=== PATIENT | female | born 1965 | race Caucasian/White ===

== ENCOUNTER 2016-07-09 11:32 | Emergency (ER) | payer BC, OTHER ==
[2016-07-09 12:14] VITALS: BP 121/76
--- NOTE | 2016-07-09 13:09 | ED ---
Throat Pain/Nasal Congestion - HPI Summary HPI Summary: Pt presents through amb triage. Pt states 10 days ago had nasal congestion with clear discharge, pnd, sore throat and laryngitis. Pt states starting Sunday, "things got worse" Discharge thick and green, fatigue, and cough. Pt reports facial aching over max sinus. ear fullness. Pt states feels cough related to PND. No wheeze. No abd pain. + nausea, no vomiting. decreased appetite. Pt has been taking sudafed and mucinex DM with improvement. No rash. PT has DM - has not been taking insulin second to decreased appetite, but is taking oral meds meds reviewed with pt at this visit - History of Current Complaint Chief Complaint: UCRespiratory Time Seen by Provider: 07/09/16 12:56 Hx Obtained From: Patient Onset/Duration: Gradual Onset Severity: Mild Cough: Nonproductive - Allergies/Home Medications Allergies/Adverse Reactions: Allergies Allergy/AdvReac Type Severity Reaction Status Date / Time Cefazolin [From Ancef] Allergy SEVERE Verified 04/09/14 06:45 VOMITING Home Medications: Home Medications Empagliflozin-Linagliptin [Glyxambi 10-5 mg] 1 tab PO DAILY 07/09/16 [History Confirmed 07/09/16] Insulin GLARGINE(*) [Lantus(*)] 50 units SUBCUT BEDTIME 07/09/16 [History Confirmed 07/09/16] Simvastatin TAB(NF) [Zocor(NF)] 40 mg PO 1700 07/09/16 [History Confirmed ] metFORMIN* [Glucophage 500 MG TAB *] 500 mg PO BID 07/09/16 [History Confirmed 07/09/16] PMH/Surg Hx/FS Hx/Imm Hx Previously Healthy: Yes Endocrine/Hematology History: Reports: Hx Diabetes Cardiovascular History: Reports: Other Cardiovascular Problems/Disorders - CHOLESTEROL CONTROL WITH SIMVASTATIN Sensory History: Denies: Hx Contacts or Glasses, Hx Hearing Aid Opthamlomology History: Denies: Hx Contacts or Glasses - Cancer History Hx Chemotherapy: No Hx Radiation Therapy: No - Surgical History Surgery Procedure, Year, and Place: Partial Hysterectomy (Has Cervix and Ovaries ), 2014, [facility] – [place]; Bilateral Breast Reduction, 2000, [facility] Hx Anesthesia Reactions: Yes - NAUSEA DEMEROL AND ANCEF MAKES ME NAUSEOUS Infectious Disease History: No Infectious Disease History: Denies: Traveled Outside the [place] in Last 30 Days - Family History Known Family History: Positive: Cardiac Disease, Hypertension - Social History Occupation: Employed Full-time Lives: With Family Alcohol Use: None Substance Use Type: Reports: None Smoking Status (MU): Never Smoked Tobacco Review of Systems Positive: Fever, Fatigue Eyes: Negative Positive: Sore Throat, Nasal Discharge Cardiovascular: Negative Negative: Chest Pain Positive: Cough. Negative: Shortness Of Breath Positive: Nausea Genitourinary: Negative Musculoskeletal: Negative Skin: Negative Neurological: Negative Psychological: Normal All Other Systems Reviewed And Are Negative: Yes Physical Exam Triage Information Reviewed: Yes Vital Signs On Initial Exam: Initial Vitals Temp Pulse Resp BP Pulse Ox 99.3 F 108 18 121/76 99 07/09/16 12:05 07/09/16 12:05 07/09/16 12:05 07/09/16 12:05 07/09/16 12:05 Vital Signs Reviewed: Yes Appearance: Positive: Well-Appearing, No Pain Distress Skin: Positive: Warm, Skin Color Reflects Adequate Perfusion, Dry Head/Face: Positive: Normal Head/Face Inspection Eyes: Positive: Normal, EOMI, GUILLERMO ENT: Positive: Hearing grossly normal, Nasal congestion - turbinates inflammed, thick secretions + PND no exudate + TTP max sinus no pain frontal, TMs normal Neck: Positive: Supple, Nontender, No Lymphadenopathy Respiratory/Lung Sounds: Positive: Clear to Auscultation, Breath Sounds Present. Negative: Wheezes Cardiovascular: Positive: Normal, RRR. Negative: Murmur Abdomen Description: Positive: Nontender, No Organomegaly, Soft Bowel Sounds: Positive: Present Musculoskeletal: Positive: Normal, Strength/ROM Intact Neurological: Positive: Normal, Normal Gait Psychiatric: Positive: Normal AVPU Assessment: Alert - Chad Coma Scale Best Eye Response: 4 - Spontaneous Best Motor Response: 6 - Obeys Commands Best Verbal Response: 5 - Oriented Diagnostics - Vital Signs Vital Signs Temp Pulse Resp BP Pulse Ox 07/09/16 12:05 99.3 F 108 18 121/76 99 - Laboratory Lab Statement: Any lab studies that have been ordered have been reviewed, and results considered in the medical decision making process. EENT Course/Dx - Course Assessment/Plan: Pt with progressive sinus pressure, green secretions, fatigue, nausea. Pt with clinical sinusitis. Will give Augmentin, flonase. d/w pt increased BG on flonase. oral secretion hygeine. PCP f/u. return precautions - Diagnoses Provider Diagnoses: Sinusitis Discharge - Discharge Plan Condition: Stable Disposition: HOME Prescriptions: Amoxicillin/Clavulanate TAB* [Augmentin TAB 875*] 875 mg PO BID #20 tab Fluticasone NASAL SPRAY 50MCG* [Flonase NASAL SPRAY 50MCG*] 2 spray BOTH NARES DAILY #1 btl Patient Education Materials: Sinusitis (ED) Referrals: Jose Guadalupe Dia NP [Primary Care Provider] - Additional Instructions: - Stay well hydrated. Drink plenty of non-alcoholic, non-caffinated beverages. - Take antibiotics as prescribed until gone - After you have been on antibiotics for 2 days - change your toothbrush and your pillowcase. These infections are spread by secretions - do NOT share eating or drinking utensils - clean items you share with other people such as cell phones, computer mouse, TV remote, computer tablets, etc - Use nasal spray as instructed - this may cause an increase in your blood sugars. monitor and adjust your insulin - Alternate ibuprofen (Advil, Motrin) 600mg and Tylenol every 3 hours for pain or fever. Take with food. Do NOT take for more than 4-5 days. - Contact your doctor to schedule a follow-up appointment. Contact your doctor or return with questions or concerns
== END 2016-07-09 13:27 | disposition home or self-care (01) ==
LOC: UCCORT 11:32
DX: J32.9 Chronic sinusitis, unspecified (principal); Z88.1 Allergy status to other antibiotic agents; E11.9 Type 2 diabetes mellitus without complications; Z79.4 Long term (current) use of insulin; Z79.84 Long term (current) use of oral hypoglycemic drugs; Z90.711 Acquired absence of uterus with remaining cervical stump
CPT/HCPCS: 99212; G0463

== ENCOUNTER 2016-11-16 13:28 | Emergency (ER) | payer BC, OTHER ==
[2016-11-16 13:40] VITALS: BP 120/85
--- NOTE | 2016-11-16 13:45 | UC ---
Skin Complaint HPI - HPI Summary HPI Summary: 50 year old female presents with skin complaint. left groin area, possible bug bite, concerned with possible tick/lyme. not sure if had tick exposure. had [ End ] - History of Current Complaint Chief Complaint: UCSkin Time Seen by Provider: 11/16/16 13:42 Stated Complaint: INSECT BITE (TICK ?) Hx Obtained From: Patient ?: No Onset/Duration: Gradual Onset Onset Severity: Mild Character: Pruritus Alleviating: Nothing Related History: Insect Bite/Sting, Possible Reaction to: Insect - Allergy/Home Medications Allergies/Adverse Reactions: Allergies Allergy/AdvReac Type Severity Reaction Status Date / Time Cefazolin [From Anc] Allergy SEVERE Verified 11/16/16 13:40 VOMITING Review of Systems Skin: Other - redness / discomfort in the anterior hip All Other Systems Reviewed And Are Negative: Yes PMH/Surg Hx/FS Hx/Imm Hx - Surgical History Surgical History: Yes Surgery Procedure, Year, and Place: Partial Hysterectomy (Has Cervix and Ovaries ), 2014, [facility] [place]; Bilateral Breast Reduction, 2000, [place] - Family History Known Family History: Positive: Cardiac Disease, Hypertension - Social History Alcohol Use: None Substance Use Type: None Smoking Status (MU): Never Smoked Tobacco - Immunization History Most Recent Influenza Vaccination: November 2015 Physical Exam Triage Information Reviewed: Yes Appearance: Well-Appearing, No Pain Distress, Well-Nourished Vital Signs: Initial Vital Signs Temp 97.6 F 11/16/16 13:37 Pulse 69 11/16/16 13:37 Resp 14 11/16/16 13:37 BP 120/85 11/16/16 13:37 Pulse Ox 98 11/16/16 13:37 Eye Exam: Normal ENT Exam: Normal Dental Exam: Normal Neck exam: Normal Neck: Positive: 1 Respiratory Exam: Normal Cardiovascular Exam: Normal Abdominal Exam: Normal Musculoskeletal Exam: Normal Neurological Exam: Normal Psychological Exam: Normal Skin Exam: Normal Skin: Positive: Other - left anterior hip near the ASIS with area of redness / mild erythema about size of quarter with mildly thickened soft tissue and small amount of ecchymosis in the center and broken skin. no lymph node enarlgement. Course/Dx - Course Course Of Treatment: Treat to ensure no abscess / cellulitis develops with her risk factors of DM -2 and she has been recent;y picking at the area / poked it with a needle 2 days ago to get drainage out. She is agreeable and aware of SE of meds. - Differential Diagnoses - Skin Complaint Differential Diagnoses: Cellulitis, Contact Dermatitis, Local Allergic Reaction , Lymphadenitis - Diagnoses Provider Diagnoses: folliculitis Discharge - Discharge Plan Condition: Good Disposition: HOME Prescriptions: Doxycycline (Monohydrate) [Doxycycline Monohydrate] 100 mg PO BID #20 cap Patient Education Materials: Folliculitis (ED) Referrals: Jose Guadalupe Dia NP [Primary Care Provider] - 4 Days Additional Instructions: As we discussed with the area that is affected and potential for infection we will treat at this time. If your symptoms worsen please seek medical attention.
== END 2016-11-16 14:14 | disposition home or self-care (01) ==
LOC: UCCORT 13:28
DX: L73.9 Follicular disorder, unspecified (principal); Z88.1 Allergy status to other antibiotic agents; Z90.711 Acquired absence of uterus with remaining cervical stump
CPT/HCPCS: 99212; G0463

== ENCOUNTER 2017-06-01 03:44 | Observation (INO) | payer BC ==
[2017-06-01] MEDS ORDERED: NS 0.9% 1000 ML* 1,000 ML IV ONE (04:48)
[2017-06-01] MEDS ORDERED: Pantoprazole IV* 40 MG IV ONE (04:48)
[2017-06-01] MEDS ORDERED: Ondansetron INJ* 2 MG/ML VIAL IV ONE (04:52)
[2017-06-01 05:37] LABS: ABS Basophils 0 10^3/ul (0-0.2); ABS Eosinophils 1.6 10^3/ul (0-0.6); ABS Monocytes 0.6 10^3/ul (0-0.8); ABS Neutrophils 7.2 10^3/ul (1.5-7.7); ABS Nucleated RBC 0 10^3/ul; Eosinophil % 13.9 % (0-6); Hematocrit 46 % (35-47); Hemoglobin 15.2 g/dl (12.0-16.0); Lymphocyte % 17.4 % (25-47); Mean Corpuscular HGB Conc 33 g/dl (31-36); Mean Corpuscular Hemoglobin 28 pg (27-31); Mean Corpuscular Volume 85 fL (80-97); Mean Platelet Volume 9 um3 (7.4-10.4); Nucleated Red Blood Cells % 0; Platelet Count 223 10^3/ul (150-450); Red Blood Count 5.38 10^6/ul (4.0-5.4); Red Cell Distribution Width 15 % (10.5-15); White Blood Count 11.5 10^3/ul (3.5-10.8)
[2017-06-01 05:49] LABS: EGFR Non-African American 95.2 (>60); INR 0.82 (0.77-1.02)
[2017-06-01] MEDS ORDERED: Iodixanol* (CONTRAST) 320 MG/ML 100 ML SDV IV ONE (06:41)
--- NOTE | 2017-06-01 08:22 | RAD ---
INDICATION: Abdominal pain. COMPARISON: There are no prior studies available for comparison. TECHNIQUE: A CT scan of the abdomen and pelvis was performed with intravenous and oral contrast following intravenous injection of 101 ml of Visipaque 320 nonionic contrast. Contiguous axial sections were obtained from the lung bases through the symphysis pubis. Images were reconstructed in the coronal and sagittal planes. FINDINGS: There is a small pleural-based nodule present in the right lobe posteriorly measuring 4 mm in size seen on image #1. The lung bases are otherwise clear. No pleural effusion is present. The liver and spleen are within normal limits in size without significant focal abnormality. No calcified gallstones are seen. The pancreas appears to be within normal limits in size. The kidneys and adrenal glands are normal in size. No hydronephrosis is seen. There is a small cyst in the lower pole of the left kidney measuring 1.2 cm in size. The aorta is normal in caliber and demonstrates homogeneous contrast opacification. No significant enlarged retroperitoneal lymph nodes are seen. The stomach, small and large bowel appear nondistended. The appendix is within normal limits. There is mild descending and sigmoid diverticulosis without evidence for diverticulitis. There is a small periumbilical hernia containing fat. The patient appears to be status post partial hysterectomy. There is a slightly complex cyst present within the right ovary with an internal septation measuring 3.3 x 2.7 cm in size and a 2.5 x 1.5 cm cyst within the left ovary. No free intraperitoneal air or fluid is seen. No significant focal osseous abnormality is seen. IMPRESSION: 1. SMALL 4 MM RIGHT LOWER LOBE PULMONARY NODULE. IF THE PATIENT HAS RISK FACTORS RECOMMEND A FOLLOW-UP CT OF THE CHEST WITHOUT CONTRAST IN 6 MONTHS TIME. 2. NO EVIDENCE FOR ACUTE FINDING OR CAUSE FOR THE PATIENT'S ABDOMINAL PAIN IS SEEN. 3. BILATERAL OVARIAN CYSTS DESCRIBED. THESE CAN BE FURTHER EVALUATED WITH A PELVIC ULTRASOUND.
[2017-06-01 08:49] LABS: Urine Appearance Clear; Urine Blood Negative (Negative); Urine Color Straw; Urine Ketones Negative (Negative); Urine Protein Negative (Negative); Urine Specific Gravity 1.014 (1.010-1.030); Urine Urobilinogen Negative (Negative)
[2017-06-01] MEDS: metFORMIN* 500 MG TAB PO SCH (11:17)
[2017-06-01] MEDS ORDERED: Dextrose 50% Syringe 50 ML* 25 GM/50 ML SYRINGE IV PUSH PRN (12:54)
--- NOTE | 2017-06-01 15:33 | HP ---
HISTORY AND PHYSICAL: DATE OF ADMISSION: 06/01/17 PRIMARY CARE PROVIDER: Jose Guadalupe Dia NP ADMITTING PROVIDER: Chris Preston MD CHIEF COMPLAINT: Burning abdominal pain, radiating to back. HISTORY OF PRESENT ILLNESS: Florina Grullon is a 51-year-old female with past medical history of non-insulin dependent diabetes mellitus, who presented with burning abdominal pain in band across mid stomach that woke her up from sleep around 2 a.m. morning of admission with radiation to the bilateral flanks. This was similar to an episode that occurred last week that lasted for about 1 hour. She on initial workup in the emergency room had an elevated lipase of 599 and amylase of 333 and was referred to hospitalist service for admission for pancreatitis after CT abdomen and pelvis with IV and oral contrast did not show any evidence of gallstones. She is notably on Glyxambi (empagliflozin/ linagliptin) for about 1 year, although has been having concerns about it given the potential side effects of pancreatitis. She is also on metformin and over- the-counter Gymnema debbi. No other medication changes. She last saw Jose Guadalupe Dia around 3 months ago. Her blood sugars usually run in the 80s to 100s. She has lost 50 pounds over the last 9 months after changing to a high protein, low carbohydrate diet. She does deny any significant change in her exercise regimen. She notably had a HIDA scan about 6 to 7 years ago which was reportedly normal. 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 She denies any fevers, chills, nausea, vomiting. She does get bloating sensations if she eats carbohydrate late in food. The CT abdomen and pelvis did not show any evidence of calcified gallstones and the pancreas appeared to be within limits of size, it was otherwise not commented on. She has had bilateral ovarian cysts 3.3 x 2.7 cm and 2.5 x 1.5 cm, prior hysterectomy. PAST MEDICAL HISTORY: Includes ggz-[id number]-[id number] diabetes mellitus. MEDICATIONS: 1. Ztxx-cta-muagsji Gymnema debbi 250 mg p.o. b.i.d. 2. Metformin 500 mg q.a.m. and 1000 mg q.p.m. 3. Empagliflozin/linagliptin (Glyxambi) 10/5 mg p.o. q.a.m. 4. Digestive enzyme tablets 1 tab p.o. daily. ALLERGIES: CEFAZOLIN, vomiting. FAMILY HISTORY: Mother with diabetes and CAD with 6 stents, father with diabetes. SOCIAL HISTORY: The patient is a never smoker, never drinker. 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 Medical surrogate is Ebenezer Grullon. REVIEW OF SYSTEMS: A complete 14-point review of systems was negative except as per HPI. She does attest to some shakiness and feeling like she was going to pass out/lightheadedness in the setting of this abdominal pain though she did check her sugars and she was not hypoglycemic. PHYSICAL EXAMINATION GENERAL APPEARANCE: No acute distress[facility] VITAL SIGNS: Temperature 97, blood pressure 135/89, satting 97% on room air, pulse rate 67 to 84. HEENT: Normocephalic, atraumatic. Pupils equal, round, and reactive to light. Extraocular motions intact. No scleral icterus. NECK: Supple. RESPIRATORY: Clear to auscultation bilaterally with no wheezing, rales, or rhonchi. CARDIOVASCULAR: Regular rate and rhythm with no murmurs, rubs, or gallops. ABDOMEN: Soft, nontender, nondistended. Negative Maldonado sign. No rebound or guarding. EXTREMITIES: Warm, well-perfused, no peripheral edema. SKIN: No lesions, no rashes. NEUROLOGIC: Cranial nerves II through XII intact, moving all extremities. LABORATORY DATA: White count 11.5, hemoglobin 15.2, hematocrit 46, platelets 223, MCV 85. INR 0.82. Sodium 136, potassium 2.9, chloride 105, carbon dioxide 25, BUN 19, creatinine 0.66, glucose 158, magnesium 1.9. AST 20, ALT 16 , alk phos 62. CRP 2.11. Amylase elevated at 333 and lipase elevated at 599. Urinalysis with 3+ glucose. IMAGING: CT abdomen and pelvis, impression: 1. Small 4 mm right lower lobe pulmonary nodule, recommended CT chest without contrast in 6 months' time for followup if has risk factors. 2. No evidence of acute findings or cause of the patient's abdominal pain is seen. 3. Bilateral ovarian cysts as described, consideration for further evaluation with pelvic ultrasound. ASSESSMENT AND PLAN: Florina Grullon is a 51-year-old female with past medical history of non-insulin dependent diabetes mellitus, on Glyxambi for the last year presenting with burning abdominal pain radiating to the back, now much relieved. She is being admitted for acute concern for pancreatitis, likely medication induced from the Glyxambi. We will hold that for now. We will get a JAIDEN, IgG4 subclasses and lipid level. Notably her triglycerides were only 257 in August 2016, although she has stopped her simvastatin 40 mg about [address] abdomen and pelvis with p.o. and IV contrast did not show any acute signs of gallstones. No LFT abnormalities. We will put her on lactated Ringer' s of 150 cc/hour for next 20 hours. Admit her to observation status, control pain with p.r.n. meds as needed. No complaint of nausea right now. Slowly add back a carbohydrate consistent diet as tolerated. We will continue her metformin. She will be put on SCDs for DVT prophylaxis. Medical surrogate is , Ebenezer Grullon. She is a full code. [id number]/[facility] #: [id number] [facility]
[2017-06-01] MEDS: Insulin LISPRO* 1 UNITS UNIT SUBCUT SCH ×2 (16:50→20:49)
[2017-06-01] MEDS ORDERED: metFORMIN* 1,000 MG TAB PO SCH (18:00)
--- NOTE | 2017-06-01 19:14 | ED ---
Yuridia Tejada Nilda, scribed for Hazel Wells MD on 06/01/17 at 0815 . Complex/Multi-Sys Presentation - HPI Summary HPI Summary: This patient is a 51 year old F presenting to [facility] with a chief complaint of constant acute severe lower back pain wrapping to lower abd at 0200 today that lasted for 45 mins. The patient rates current aching pain 5/10 in severity. Patient reports pallor and nausea. Last BM was during pain episode this morning. PMHx includes DM (on Metformin). PSHx hysterectomy 2014 due to multiple fibroids. - History Of Current Complaint Chief Complaint: EDFlankPain Time Seen by Provider: 06/01/17 04:29 Hx Obtained From: Patient Onset/Duration: Sudden Onset, Still Present Timing: Constant Severity Currently: Severe Character: Dull - aching Associated Signs And Symptoms: Positive: Other - pallor, nausea, low back pain, low abd pain - Allergies/Home Medications Allergies/Adverse Reactions: Allergies Allergy/AdvReac Type Severity Reaction Status Date / Time cefazolin Allergy Vomiting Verified 06/01/17 03:46 Home Medications: Home Medications Digestive 8/L.acidoph/Pectin [Digestive Enzymes Tablet] 1 tab PO DAILY 06/01/17 [History Confirmed 06/01/17] Empagliflozin/Linagliptin [Glyxambi 10-5 mg] 1 tab PO QAM 06/01/17 [History Confirmed 06/01/17] Gymnema [place] [Gymnema Sylvestris [place]] 250 mg PO BID 06/01/17 [History Confirmed 06/01/17] metFORMIN* [Glucophage 1000 MG TAB *] 1,000 mg PO QPM 06/01/17 [History Confirmed 06/01/17] PMH/Surg Hx/FS Hx/Imm Hx Endocrine/Hematology History: Reports: Hx Diabetes Cardiovascular History: Reports: Other Cardiovascular Problems/Disorders - CHOLESTEROL CONTROL WITH SIMVASTATIN Denies: Hx Hypertension History: Denies: Hx Renal Disease Sensory History: Denies: Hx Contacts or Glasses, Hx Hearing Aid Opthamlomology History: Denies: Hx Contacts or Glasses - Cancer History Hx Chemotherapy: No Hx Radiation Therapy: No - Surgical History Surgery Procedure, Year, and Place: Partial Hysterectomy (Has Cervix and Ovaries ), 2014, [facility] [place]; Bilateral Breast Reduction, 2000, [place] Hx Anesthesia Reactions: Yes - NAUSEA DEMEROL AND ANCEF MAKES ME NAUSEOUS - Immunization History Date of Tetanus Vaccine: unk Date of Influenza Vaccine: unk Infectious Disease History: No Infectious Disease History: Denies: Traveled Outside the [place] in Last 30 Days - Family History Known Family History: Positive: Cardiac Disease, Hypertension - Social History Alcohol Use: None Substance Use Type: Reports: None Smoking Status (MU): Never Smoked Tobacco Review of Systems Positive: Abdominal Pain, Nausea Positive: Other - lower back pain Positive: Other - pallor All Other Systems Reviewed And Are Negative: Yes Physical Exam - Summary Physical Exam Summary: VITAL SIGNS: Reviewed. GENERAL: Patient is a well-developed and nourished female who is lying comfortable in the stretcher. Patient is not in any acute respiratory distress. HEAD AND FACE: No signs of trauma. No ecchymosis, hematomas or skull depressions. No sinus tenderness. EYES: PERRLA, EOMI x 2, No injected conjunctiva, no nystagmus. EARS: Hearing grossly intact. Ear canals and tympanic membranes are within normal limits. MOUTH: Oropharynx within normal limits. NECK: Supple, trachea is midline, no adenopathy, no JVD, no carotid bruit, no c- spine tenderness, neck with full ROM. CHEST: Symmetric, no tenderness at palpation LUNGS: Clear to auscultation bilaterally. No wheezing or crackles. CVS: Regular rate and rhythm, S1 and S2 present, no murmurs or gallops appreciated. ABDOMEN: Soft, non-tender. No signs of distention. No rebound no guarding, and no masses palpated. Bowel sounds are normal. EXTREMITIES: FROM in all major joints, no edema, no cyanosis or clubbing. NEURO: Alert and oriented x 3. No acute neurological deficits. Speech is normal and follows commands. SKIN: Dry and warm Triage Information Reviewed: Yes Vital Signs On Initial Exam: Initial Vitals Temp Pulse Resp BP Pulse Ox 97 F 74 16 135/89 97 06/01/17 03:47 06/01/17 03:47 06/01/17 03:47 06/01/17 03:47 06/01/17 03:47 Vital Signs Reviewed: Yes Diagnostics - Vital Signs Vital Signs Temp Pulse Resp BP Pulse Ox 06/01/17 06:00 72 117/70 97 06/01/17 05:30 65 114/73 99 06/01/17 05:00 72 118/72 96 06/01/17 04:32 84 97 06/01/17 04:31 100/86 06/01/17 03:47 97 F 74 16 135/89 97 - Laboratory Lab Results: Lab Results 06/01/17 06/01/17 06/01/17 Range/Units 05:05 05:05 05:05 WBC 11.5 H (3.5-10.8) 10^3/ul RBC 5.38 (4.0-5.4) 10^6/ul Hgb 15.2 (12.0-16.0) g/dl Hct 46 (35-47) % MCV 85 (80-97) fL MCH 28 (27-31) pg MCHC 33 (31-36) g/dl RDW 15 (10.5-15) % Plt Count 223 (150-450) 10^3/ul MPV 9 (7.4-10.4) um3 Neut % (Auto) 63.1 (38-83) % Lymph % (Auto) 17.4 L (25-47) % [place] % (Auto) 5.4 (0-7) % Eos % (Auto) 13.9 H (0-6) % Baso % (Auto) 0.2 (0-2) % Absolute Neuts (auto) 7.2 (1.5-7.7) 10^3/ul Absolute Lymphs (auto) 2.0 (1.0-4.8) 10^3/ul Absolute Monos (auto) 0.6 (0-0.8) 10^3/ul Absolute Eos (auto) 1.6 H (0-0.6) 10^3/ul Absolute Basos (auto) 0 (0-0.2) 10^3/ul Absolute Nucleated RBC 0 10^3/ul Nucleated RBC % 0 INR (Anticoag Therapy) 0.82 (0.77-1.02) APTT 30.9 (26.0-36.3) seconds Sodium 136 (133-145) mmol/L Potassium 3.9 (3.5-5.0) mmol/L Chloride 105 (101-111) mmol/L Carbon Dioxide 25 (22-32) mmol/L Anion Gap 6 (2-11) mmol/L BUN 19 (6-24) mg/dL Creatinine 0.66 (0.51-0.95) mg/dL Est GFR ( Amer) 122.4 (>60) Est GFR (Non-Af Amer) 95.2 (>60) BUN/Creatinine Ratio 28.8 H (8-20) Glucose 158 H (70-100) mg/dL Calcium 9.4 (8.6-10.3) mg/dL Magnesium 1.9 (1.9-2.7) mg/dL Total Bilirubin 0.50 (0.2-1.0) mg/dL AST 20 (13-39) U/L ALT 16 (7-52) U/L Alkaline Phosphatase 62 (34-104) U/L Total Creatine Kinase 163 (10-223) U/L C-Reactive Protein 2.11 (< 5.00) mg/L Total Protein 7.0 (6.4-8.9) g/dL Albumin 4.2 (3.2-5.2) g/dL Globulin 2.8 (2-4) g/dL Albumin/Globulin Ratio 1.5 (1-3) Amylase 333 H (29-103) U/L Lipase 599 H (11.0-82.0) U/L Result Diagrams: 06/01/17 05:05 06/01/17 05:05 Lab Statement: Any lab studies that have been ordered have been reviewed, and results considered in the medical decision making process. - CT Abd/Pel CT Interpretation Completed By: Radiologist - pending. see Periscape. Complex Multi-Symp Course/Dx Assessment/Plan: Pt is 51 y/o c/o lower back pain wrappng to lower abd. Labs reveal elevated amylase and lipase. [0640] Dr. Preston agrees to admit pt. Pt admitted with Dx pancreatitis. - Diagnoses Provider Diagnoses: Pancreatitis - Physician Notifications Discussed Care Of Patient With: Chris Preston - Hospitalist Time Discussed With Above Provider: 06:40 Instructed by Provider To: Admit As Inpatient Discharge - Discharge Plan Condition: Stable Disposition: ADMITTED TO [facility] Referrals: Jose Guadalupe Dia, RN LABOR AND DELIVERY [Primary Care Provider] - The documentation as recorded by the Yuridia em Nilda accurately reflects the service I personally performed and the decisions made by , Hazel Wells MD.
[2017-06-02 04:37] VITALS: BP 103/68
[2017-06-02] MEDS: Insulin LISPRO* 1 UNITS UNIT SUBCUT SCH (08:23)
[2017-06-02] MEDS: metFORMIN* 500 MG TAB PO SCH (08:23)
--- NOTE | 2017-06-02 20:24 | DS ---
DISCHARGE SUMMARY: DATE OF ADMISSION: 06/01/17 DATE OF DISCHARGE: 06/02/17 ADMITTING PROVIDER: Chris Preston MD PRIMARY CARE PHYSICIAN: Jose Guadalupe Dia NP ATTENDING PHYSICIAN: Chris Preston MD CHIEF COMPLAINT: Burning abdominal pain radiating to the back. PRINCIPAL DIAGNOSES: Acute pancreatitis likely secondary to medication Glyxambi. HISTORY OF PRESENT ILLNESS AND HOSPITAL COURSE: Florina Grullon is a 51-year-old female with a past medical history of non-insulin dependent diabetes mellitus, who presented with burning abdominal pain and band across her mid stomach that radiated to the back on morning of admission that woke her up. She also had an additional episode a week prior. She was found to have elevated lipase of 599 and amylase of 333. She had a CT of the abdomen and pelvis with IV and oral contrast, which did not show any evidence of gallstones and her LFTs were within normal limits. Her Glyxambi (empagliflozin/linagliptin) was held. She has a small associated risk with that for pancreatitis. She was started on IV fluids overnight. She had a triglyceride level, which was only mildly elevated. She had JAIDEN and IgG subclasses drawn, which are still pending. She is being discharged with complete resolution of her abdominal pain. No nausea or vomiting and lipase returned to normal limits. By hospital day #2, she is being discontinued on the Glyxambi until can be discussed with Jose Guadalupe Dia, her primary care provider and results of the JAIDEN and IgG can be obtained. Of note, she had an A1c of 6.9 with a good blood sugar control while in the hospital while on metformin. DISCHARGE MEDICATIONS: Include: 1. Metformin 500 mg q.a.m., and 1000 mg p.o. q.p.m. 2. Digestive enzymes tab 1 tab p.o. daily. 3. Gymnema debbi 250 mg p.o. b.i.d. DISCHARGE DIET: Carbohydrate consistent. ACTIVITY LEVEL: No restrictions. FOLLOWUP: Please follow up with Jose Guadalupe Dia within 5 days of discharge and follow up on the JAIDEN and IgG subclass levels to rule out autoimmune pancreatitis. TIME SPENT: Time spent on this discharge was 35 minutes. [id number]/[facility] #: [id number] [facility]Cong
== END 2017-06-02 12:15 | disposition home or self-care (01) ==
LOC: ED 03:44 → MED 09:40 → INTOOBSV 09:40 → MED 13:15
PROVIDERS: ADMIT Internal Medicine; ATTEND Internal Medicine
DX: K85.30 Drug induced acute pancreatitis without necrosis or infection (principal); T50.995A Adverse effect of other drugs, medicaments and biological substances, initial encounter; Y92.9 Unspecified place or not applicable; E11.9 Type 2 diabetes mellitus without complications; Z79.899 Other long term (current) drug therapy; Z79.84 Long term (current) use of oral hypoglycemic drugs; R91.1 Solitary pulmonary nodule; Z88.1 Allergy status to other antibiotic agents
CPT/HCPCS: 36415; 74177; 80053; 80061; 81003; 82150; 82550; 82784; 82787; 83036; 83690; 83735; 85025; 85610; 85730; 86038; 86140; 96374; 96375; 99285; A9270-GY; G0378; Q9967